=== PATIENT | female | born 1950 | race Caucasian/White ===

== ENCOUNTER 2016-10-09 21:04 | Observation (INO) ==
[2016-10-09 21:48] LABS: Basophils % 0.7 %; Eosinophils # 0.3 K/mcL (0.0-0.6); Hematocrit 28.8 % (35.3-44.9); Hemoglobin 10.4 g/dL (11.5-15.4); Immature Granulocytes % 0.2 % (0-4); Lymphocytes # 1.3 K/mcL (0.6-4.6); Lymphocytes % 23.3 %; Mean Corpuscular HGB Conc 36.1 g/dL (31.6-35.5); Mean Corpuscular Hemoglobin 31.2 pg (28.0-33.3); Mean Corpuscular Volume 86.5 fL (83.0-100.0); Mean Platelet Volume 10.5 fL (9.4-12.4); Monocytes # 0.5 K/mcL (0.0-1.3); Monocytes % 9.7 %; Neutrophils # 3.2 K/mcL (1.6-8.9); Platelet Count 156 K/mcL (140-400); Red Blood Count 3.33 M/mcL (3.82-4.97); Red Cell Distribution Width 11.6 % (11.5-14.5); Segmented Neutrophils % 60.1 %
[2016-10-09 21:54] LABS: Prothrombin Time 11.1 Seconds (9.4-12.1)
[2016-10-09 21:56] LABS: Activated Partial Thrombo Time 25.5 Seconds (26.0-36.0)
[2016-10-09 22:00] LABS: Calcium 8.6 mg/dL (8.6-10.8); Potassium 4.5 mEq/L (3.5-4.5)
--- NOTE | 2016-10-09 22:13 | Emergency Department Note ---
Disposition Clinical Impression: Stable angina Disposition: Admitted As Inpatient Referrals: Unassigned,Provider [Primary Care Provider] - Forms: ED Satisfaction Letter Chest Pain HPI - General Chief Complaint: ED Chest Pain Stated Complaint: chest pain Source: patient, EMS Limitations: no limitations Vital Signs Reviewed: Yes Nursing Notes Reviewed: Yes - History of Present Illness Pt complaint: chest pain Onset (ago): hour(s) Duration: constant, now resolved Onset: during exertion Pain Location: substernal Severity scale (1-10): 1 Quality: heaviness Pain Radiation: none Improves with: nitroglycerin Worsens with: exertion Associated symptoms: Denies: nausea, vomiting Treatments prior to arrival chest pain: aspirin, nitroglycerin, oxygen - Related Data Allergies Allergy/AdvReac Type Severity Reaction Status Date / Time acetaminophen Allergy Hives Verified 12/24/15 09:40 [From Darvocet-N] propoxyphene Allergy Hives Verified 12/24/15 09:40 [From Darvocet-N] All systems ED: reviewed and negative except as stated. Constitutional: Denies: fever, chills ENT ED: Denies: ear pain Cardiovascular: Denies: palpitations, orthopnea Chest Pain PMH - Past Medical History Medical history: Reports: cancer, CVA, diabetes, hypertension, TIA Surgical history: Reports: hysterectomy, orthopedic, other Psychiatric history: Reports: depression [employer] history: Reports: other - Social History Smoking Status: Never smoker Alcohol use: Reports: none Drug use: Reports: none Physical Exam - General Limitations: no limitations General appearance: alert, in no apparent distress - Head Head exam: atraumatic, normocephalic, normal inspection - Eye Eye exam: Present: normal appearance, PERRL, EOMI - Expanded Eye Exam Pupils: Left: reactive - ENT ENT exam: normal exam, normal oropharynx, mucous membranes moist - Expanded ENT Exam External ear exam: Present: normal external inspection Mouth exam: Present: normal external inspection Teeth exam: Present: normal inspection Throat exam: Present: normal inspection - Neck Neck exam: Present: normal inspection, full ROM, trachea midline - Chest Chest inspection: Present: normal inspection, symmetric chest wall rise - Respiratory Respiratory exam: Present: normal lung sounds bilaterally - Cardiovascular Cardiovascular exam: Present: regular rate, normal rhythm, normal heart sounds - Abdominal Exam Abdominal exam: Present: soft, Non-Tender. Absent: tenderness, distention, guarding, rebound, rigidity - Extremities Exam Extremities exam: Present: normal inspection, full ROM. Absent: tenderness, pedal edema - Expanded Upper Extremity Exam Shoulder exam: Present: normal inspection, full ROM Arm exam: Present: normal inspection, full ROM Elbow exam: Present: normal inspection, full ROM Forearm/Wrist exam: Present: normal inspection, full ROM Hand exam: Present: normal inspection, full ROM Vascular exam: Normal: capillary refill, radial pulse - Expanded Lower Extremity Exam Hip/Pelvis exam: Present: normal inspection, full ROM Upper leg exam: Present: normal inspection, full ROM Knee exam: Present: normal inspection, full ROM Lower leg exam: Present: normal inspection, full ROM Ankle exam: Present: normal inspection, full ROM Foot/toe exam: Present: normal inspection, full ROM Neurovascular/Tendon exam: Absent: motor deficit, sensory deficit, tendon deficit - Back Exam Back exam: Present: normal inspection, full ROM. Absent: tenderness - Neurological Exam Neurological exam: Present: alert, oriented X3 - Expanded Neurological Exam Patient oriented to: Present: person, place, time Coma Scale Eye Opening: Spontaneous Coma Scale Motor Response: Obeys Commands Coma Scale Verbal Response: Oriented Coma Scale Total: 15 - Psychiatric Psychiatric exam: Present: normal affect, normal mood - Skin Skin exam: Present: warm, dry, intact, normal color Course Vital Signs Temperature 98.3 F 10/09/16 21:05 Pulse Rate 84 10/09/16 21:05 Respiratory Rate 16 10/09/16 21:05 Blood Pressure 145/59 10/09/16 21:05 O2 Sat by Pulse Oximetry 98 10/09/16 21:05 Temperature 98.3 F 10/09/16 21:05 Pulse Rate 71 10/09/16 21:55 Respiratory Rate 16 10/09/16 21:55 Blood Pressure 122/57 10/09/16 21:55 O2 Sat by Pulse Oximetry 97 10/09/16 21:55 Oxygen Delivery Oxygen Delivery Nasal Cannula Chest Pain - Differential Diagnosis Likely: stable angina, unstable angina pectoris, atypical chest pain, st elevation myocardial infraction, chest pain - Medical Records Medical records reviewed: Yes I reviewed the patient's medical records. - Lab Data Lab results reviewed: Yes I reviewed the patient's lab results. Result diagrams: 10/09/16 21:40 10/09/16 21:40 Lab Results 10/09/16 10/09/16 10/09/16 Range/Units 21:40 21:40 21:40 WBC 5.4 (4.3-11.1) K/mcL RBC 3.33 L (3.82-4.97) M/mcL Hgb 10.4 L (11.5-15.4) g/dL Hct 28.8 L (35.3-44.9) % MCV 86.5 (83.0-100.0) fL MCH 31.2 (28.0-33.3) pg MCHC 36.1 H (31.6-35.5) g/dL RDW 11.6 (11.5-14.5) % Plt Count 156 (140-400) K/mcL MPV 10.5 (9.4-12.4) fL Immature Gran % 0.2 (0-4) % Seg Neutrophils % 60.1 % Lymphocytes % 23.3 % Monocytes % 9.7 % Eosinophils % 6.0 % Basophils % 0.7 % Neutrophils # 3.2 (1.6-8.9) K/mcL Lymphocytes # 1.3 (0.6-4.6) K/mcL Monocytes # 0.5 (0.0-1.3) K/mcL Eosinophils # 0.3 (0.0-0.6) K/mcL Basophils # 0.0 (0.0-0.2) K/mcL PT 11.1 (9.4-12.1) Seconds INR 1.0 APTT 25.5 L (26.0-36.0) Seconds Sodium 133 L (136-145) mEq/L Potassium 4.5 (3.5-4.5) mEq/L Chloride 99 (98-109) mEq/L Carbon Dioxide 25 (19-29) mEq/L BUN 26 H (7-20) mg/dL Creatinine 1.43 H (0.57-1.11) mg/dL Est GFR ( Amer) 44 L (> 60) Est GFR (Non-Af Amer) 37 L (> 60) BUN/Creatinine Ratio 18 (6-26) Glucose 380 H (70-99) mg/dL Calculated Osmolality 296 (280-300) Calcium 8.6 (8.6-10.8) mg/dL Troponin I (0-0.03) ng/mL 10/09/16 Range/Units 21:40 WBC (4.3-11.1) K/mcL RBC (3.82-4.97) M/mcL Hgb (11.5-15.4) g/dL Hct (35.3-44.9) % MCV (83.0-100.0) fL MCH (28.0-33.3) pg MCHC (31.6-35.5) g/dL RDW (11.5-14.5) % Plt Count (140-400) K/mcL MPV (9.4-12.4) fL Immature Gran % (0-4) % Seg Neutrophils % % Lymphocytes % % Monocytes % % Eosinophils % % Basophils % % Neutrophils # (1.6-8.9) K/mcL Lymphocytes # (0.6-4.6) K/mcL Monocytes # (0.0-1.3) K/mcL Eosinophils # (0.0-0.6) K/mcL Basophils # (0.0-0.2) K/mcL PT (9.4-12.1) Seconds INR APTT (26.0-36.0) Seconds Sodium (136-145) mEq/L Potassium (3.5-4.5) mEq/L Chloride (98-109) mEq/L Carbon Dioxide (19-29) mEq/L BUN (7-20) mg/dL Creatinine (0.57-1.11) mg/dL Est GFR ( Amer) (> 60) Est GFR (Non-Af Amer) (> 60) BUN/Creatinine Ratio (6-26) Glucose (70-99) mg/dL Calculated Osmolality (280-300) Calcium (8.6-10.8) mg/dL Troponin I 0.00 (0-0.03) ng/mL - Radiology Data Radiology results reviewed: Yes I reviewed the patient's radiology results. - EKG Data EKG shows normal: sinus rhythm Rate: normal Rhythm: NSR Interpretation: no acute changes
[2016-10-10] MEDS ORDERED: Ondansetron 4 MG/2 ML VIAL IVP PRN (02:41)
[2016-10-10] MEDS ORDERED: Naloxone 0.4 MG/ML INJ IVP PRN (02:41)
--- NOTE | 2016-10-10 02:44 | Internal Med History&Physical ---
Date of Encounter: 10/10/16 Time of Encounter: 01:45 Assessment and Plan (1) Chest pain Current visit: Yes Status: Acute Patient presents with chest pain with history of CAD and placement of 2 stents about 6-7 years ago with no continued cardiology follow-up. First set of troponin negative. Continue telemetry monitoring and cycle troponins. Nuclear stress test in a.m. Continue aspirin, statin, beta naseem. Check lipid profile. Patient may require outpatient cardiology follow-up. Qualifiers: Chest pain type: precordial pain Qualified Code(s): R07.2 - Precordial pain (2) CAD (coronary artery disease) Current visit: Yes Status: Chronic Qualifiers: Coronary Disease-Associated Artery/Lesion type: [place] artery [place] vs. transplanted heart: [place] heart Associated angina: without angina Qualified Code(s): I25.10 - Atherosclerotic heart disease of [place] coronary artery without angina pectoris (3) Essential hypertension Current visit: Yes Status: Chronic Blood pressure noted to be well controlled. Resume home medications. (4) Diabetes mellitus Current visit: Yes Status: Chronic Accu-Chek blood glucose monitoring with sliding scale insulin as needed. Check hemoglobin A1c. Diabetic diet. Qualifiers: Diabetes mellitus type: type 2 Diabetes mellitus complication status: with kidney complications Diabetes mellitus complication detail: with chronic kidney disease Diabetes mellitus o[place] insulin use: without intermediate use Chronic kidney disease stage: stage 3 (moderate) Qualified Code(s): E11.22 - Type 2 diabetes mellitus with diabetic chronic kidney disease; N18.3 - Chronic kidney disease, stage 3 (moderate) (5) Chronic kidney disease Current visit: Yes Status: Chronic Patient likely has diabetic nephropathy. Chronic kidney disease stage III, follows with nephrology as outpatient. Serum creatinine currently noted to be at her baseline. Qualifiers: Chronic kidney disease stage: stage 3 (moderate) Qualified Code(s): N18.3 - Chronic kidney disease, stage 3 (moderate) Internal Medicine - H&P: HPI Chief complaint: chest pain Admitted From: Emergency Dept Plans for Post Hospital Care: Home History of present illness: Ms. Coleman is a 65 year old female with history of CAD status post stent several years ago, presents with complaints of sudden onset of retrosternal chest pain. Patient reports having the sudden onset of sharp pressure-like retrosternal chest pain earlier this evening as she was getting up to get herself some coffee. She reports that the pain lasted for about an hour, it was moderate to severe, occasionally radiating to neck and left shoulder. EMS was called and patient received 3 doses of sublingual nitroglycerin with complete resolution of chest pain by the time she presented to the emergency room. Her chest pain was associated with mild shortness of breath and nausea, no vomiting, cough, syncope. No prior similar episodes. Past Med Surg Social Fam HX - Past Medical History Medical history: cancer, CVA, diabetes, hypertension, renal disease, TIA Psychiatric history: depression - Past Surgical History Surgical History: hysterectomy, orthopedic, other (Spinal fusion surgery) - Social History Smoking Status: Never smoker Smokeless Tobacco Status: No Alcohol use: none Drug use: none Occupational status: unemployed Current living situation: Home - Independent Activity Level: Independent ambulation Recent Out of Country Travel Within the Last 8 Weeks: No - Family History Mother Hx Family Cardiac Disorders: Yes (CVA, PR, HTN, HLD) Hx Family Respiratory Disorders: No Hx Family Cancer: Yes (Breast) Hx Family GI Disorders: No Hx Family Genitourinary Disorders: No Hx Family Endocrine Disorder: No Hx Family Musculoskeletal Disorders: No Hx Family Neuromuscular Disorders: No Hx Family Neurologic Disorders: No Hx Family HEENT Disorders: No Hx Family Autoimmune Disorders: No Hx Family Reproductive Disorders: No Hx Family Psychosocial Disorders: No Hx Family Medical Disorders: No Brother Hx Family Cardiac Disorders: Yes (PR, CVA) Hx Family Respiratory Disorders: No Hx Family Cancer: No Hx Family GI Disorders: No Hx Family Genitourinary Disorders: No Hx Family Endocrine Disorder: Yes (DM) Hx Family Musculoskeletal Disorders: No Hx Family Neuromuscular Disorders: No Hx Family Neurologic Disorders: No Hx Family HEENT Disorders: No Hx Family Autoimmune Disorders: No Hx Family Reproductive Disorders: No Hx Family Psychosocial Disorders: No Hx Family Medical Disorders: No Internal Medicine - H&P: Meds Carvedilol 3.125 mg PO BID 10/09/16 [History] Citalopram Hydrobromide [Citalopram HBr] 40 mg PO DAILY 10/09/16 [History] Lisinopril [Zestril] 10 mg PO DAILY 10/09/16 [History] Nitrofurantoin (BID) [Macrobid] 100 mg PO BID 10/09/16 [History] Pantoprazole Sodium [Protonix] 40 mg PO DAILY 10/09/16 [History] Simvastatin [Zocor] 40 mg PO HS 10/09/16 [History] Allergies acetaminophen [From Darvocet-N] Allergy (Verified 12/24/15 09:40) Hives propoxyphene [From Darvocet-N] Allergy (Verified 12/24/15 09:40) Hives All Systems PM: A 10-system review of systems was performed and is negative for pertinent findings except as documented above in the HPI. - Constitutional Constitutional: no chills, no fever(s), no night sweats - EENT Eyes: no change in vision, no discharge, no pain, no photophobia Ears: no ear discharge, no ear pain, no tinnitus Nose, mouth and throat: no dysphagia, no nasal discharge, no neck pain, no sore throat - Cardiovascular Cardiovascular ROS IM: chest pain, dyspnea - Respiratory Respiratory: no cough, no dyspnea, no wheezing, no excessive phlegm production - Gastrointestinal Gastrointestinal: nausea, no abdominal pain, no diarrhea, no hematemesis, no hematochezia, no melena, no vomiting - Genitourinary Genitourinary: no change in urinary stream, no dysuria, no flank pain, no hematuria - Musculoskeletal Musculoskeletal ROS IM: no numbness, no tingling - Integumentary Integumentary IM: no rash, no unusual bruising - Neurological Neurological ROS: no confusion, no convulsions, no focal weakness, no numbness, no tingling, no tremor(s) - Hematologic/Lymphatic Hematologic/Lymphatic: no easy bruising - Constitutional Vitals: Temp Pulse Resp BP Pulse Ox 98 F 77 16 117/70 95 10/09/16 23:46 10/09/16 23:46 10/09/16 23:46 10/09/16 23:46 10/09/16 23:46 General appearance: Present: A&O X 3, answers questions appropriately - Respiratory Respiratory exam: Present: CTAB. Absent: accessory muscle use, rales, rhonchi, wheezes - Cardiovascular Cardiovascular exam: Present: RRR, +S1, +S2. Absent: diastolic murmur, gallop, rubs, systolic murmur - GI/Abdominal GI/Abdominal exam: Present: normal bowel sounds, soft, no peritoneal signs. Absent: distended, tenderness - Extremities Exam Extremities exam: Present: full ROM, warm, radial pulses palpable and symetrical. Absent: calf tenderness, cyanotic, pedal edema - Neurological Exam Neurological exam: Present: CN II-XII intact, oriented X3, no focal deficits. Absent: pronater drift, facial droop, speech deficit - Skin Skin exam: Present: dry, intact Internal Med - H&P Results - Labs CBC & Chem 7: 10/09/16 21:40 10/09/16 21:40 - EKG Data EKG shows normal: sinus rhythm Rate: normal
[2016-10-10 03:56] LABS: Basophils % 0.6 %; Eosinophils # 0.3 K/mcL (0.0-0.6); Eosinophils % 5.6 %; Hemoglobin 10.2 g/dL (11.5-15.4); Immature Granulocytes % 0.2 % (0-4); Lymphocytes # 1.3 K/mcL (0.6-4.6); Lymphocytes % 27.9 %; Mean Corpuscular HGB Conc 35.2 g/dL (31.6-35.5); Mean Corpuscular Hemoglobin 30.4 pg (28.0-33.3); Mean Corpuscular Volume 86.3 fL (83.0-100.0); Mean Platelet Volume 11.2 fL (9.4-12.4); Monocytes # 0.4 K/mcL (0.0-1.3); Monocytes % 9.2 %; Neutrophils # 2.7 K/mcL (1.6-8.9); Platelet Count 148 K/mcL (140-400); Red Blood Count 3.36 M/mcL (3.82-4.97); Red Cell Distribution Width 11.6 % (11.5-14.5); Segmented Neutrophils % 56.5 %
[2016-10-10 04:10] LABS: Chol/HDL Ratio 2.7 (0-4.9)
[2016-10-10] MEDS ORDERED: Regadenoson 0.4 MG/5 ML SYRINGE IVP ONE (06:49)
[2016-10-10] MEDS ORDERED: *HR* Dextrose 50 % in Water (Syg) 50 ML SYRINGE IVP PRN (09:54)
[2016-10-10] MEDS ORDERED: Dextrose Gel 15 GM PO PRN ×2 (09:54)
[2016-10-10] MEDS ORDERED: D5% in Water 1,000 ML IVC PRN (09:54)
[2016-10-10 11:24] VITALS: BP 109/65
[2016-10-10] MEDS ORDERED: Insulin LISPRO 300 UNITS/3 ML VIAL SQ SCH ×2 (11:30→21:00)
--- NOTE | 2016-10-10 11:33 | Nuclear Medicine Stress Report ---
Regadenoson Nuclear Stress Name: Roxy Coleman Date of Study: 10/10/2016 Date: 1950 Ht: 68.0 in Medical Record#: [id number] Age: 65 Wt: 188.0 lb Gender: Female Order #: [id number] Location: [facility] Room: [facility] Supervising Provider: Bernardino Rogel CNP Reading Physician: Jed Siddiqui MD, [facility] Ordering Physician: Tania Joy CNP Stress Technologist: Alistair Caal RRT, CCT Weather Forcaster: Hal Chang Indications: Chest Pain Impression: Perfusion imaging was negative for ischemia or infarct. Pharmacologic ECG was non diagnostic for ischemia. Patient had no chest pain with stress. Normal hemodynamic response. No arrhythmias noted with stress. Gated EF = >70%. There is no evidence of TID. History: Hypertension Diabetes Hypercholesteremia Prior PCI Stress Test Summary: Stress Test Type: Pharmacologic Regadenoson 0.4mg/5ml given IV Baseline Information: Initial Heart Rate: 70 Blood Pressure: 140/72 Stress Information: Stress Time: 4 min 00 sec Test Terminated Due to (primary): Completed Protocol Maximum Blood Pressure: 150/76 Maximum Heart Rate: 100 Percent Maximum Heart Rate Achieved: 66 Double Product: 15,000 METS Reached: 1 Symptoms: tingly, Shortness of breath Nuclear Summary: SPECT myocardial perfusion imaging using Tc99m Sestamibi given intravenously was performed at rest and following cardiac stress testing. The resting images were obtained following initial dose of 9.6 mCi. Following stress an additional dose of 33.8 mCi was given at peak exercise or 30 seconds post regadenoson infusion. Medication Given: Time Medication Dose Units Route Findings: Stress Note * Resting ECG demonstrated normal sinus rhythm. * No baseline arrhythmias were noted. * Pharmacologic stress ECG is non diagnostic for ischemia due to failure to reach target heartrate. * No arrhythmias were noted during stress. * Patient had no chest pain during stress. Hemodynamic responses * Normal hemodynamic responses to pharmacologic stress. Study Quality * Study quality is average. Gated EF > 70% * Gated EF > 70%. Left Ventricle * The left ventricle is not dilated. NORMALS * Normal wall motion. * Normal segmental perfusion in stress. * Normal Segmental Perfusion in rest. TID * No evidence of transient ischemic dilatation. Updated by Jed Siddiqui MD, FACC on 10/10/2016 11:21:32 AM electronically signed on 10/10/2016 11:26:25 AM with status of Final
[2016-10-10] MEDS ORDERED: Insulin DETEMIR 100 UNIT/ML X5UNITS SQ SCH (12:30)
--- NOTE | 2016-10-10 13:17 | Discharge Summary ---
Date of Encounter: 10/10/16 Time of Encounter: 12:30 - Discharge Diagnosis (1) Chest pain Priority: Primary Status: Resolved Comments: Patient denied chest pain or shortness of breath on day of discharge. Chest x- ray negative. Troponins negative. Stress test negative. ACS ruled out. Qualifiers: Chest pain type: precordial pain Qualified Code(s): R07.2 - Precordial pain (2) Esophageal spasm Priority: Primary Status: Suspected (3) UTI (urinary tract infection) Priority: Primary Status: Resolved Comments: Patient stating she was diagnosed with a urinary tract infection outpatient per her video recorder mechanic Dr. Velazquez last at which time she was started on Macrobid. Urine culture negative. Follow-up outpatient (4) CAD (coronary artery disease) Priority: Secondary Status: Chronic Qualifiers: Coronary Disease-Associated Artery/Lesion type: [place] artery [place] vs. transplanted heart: [place] heart Associated angina: without angina Qualified Code(s): I25.10 - Atherosclerotic heart disease of [place] coronary artery without angina pectoris (5) Essential hypertension Priority: Secondary Status: Chronic Comments: Controlled with her home dosing of carvedilol, lisinopril. Follow palpation. (6) Diabetes mellitus Priority: Secondary Status: Chronic Comments: Moderately controlled with a recent A1c of 8.9%. Patient was hyperglycemic during this admission. She states that when she has infections that her glucoses are elevated. Treated with long-acting insulin prior to discharge. Follow-up outpatient. Qualifiers: Diabetes mellitus type: type 2 Diabetes mellitus complication status: with kidney complications Diabetes mellitus complication detail: with chronic kidney disease Diabetes mellitus terminal worker insulin use: without alf use Chronic kidney disease stage: stage 3 (moderate) Qualified Code(s): E11.22 - Type 2 diabetes mellitus with diabetic chronic kidney disease; N18.3 - Chronic kidney disease, stage 3 (moderate) (7) Chronic kidney disease Priority: Secondary Status: Chronic Comments: Stable and consistent with her baseline. She has a video recorder mechanic that is following her outpatient, Dr. Velazquez. Qualifiers: Chronic kidney disease stage: stage 3 (moderate) Qualified Code(s): N18.3 - Chronic kidney disease, stage 3 (moderate) - Discharge Medications Home Medications: Carvedilol 3.125 mg PO BID 10/09/16 [History] Citalopram Hydrobromide [Citalopram HBr] 40 mg PO DAILY 10/09/16 [History] Lisinopril [Zestril] 10 mg PO DAILY 10/09/16 [History] Nitrofurantoin (BID) [Macrobid] 100 mg PO BID 10/09/16 [History] Pantoprazole Sodium [Protonix] 40 mg PO DAILY 10/09/16 [History] Simvastatin [Zocor] 40 mg PO HS 10/09/16 [History] Insulin Glargine,Hum.rec.anlog [Lantus Solostar] 29 unit SQ QAM 10/10/16 [ History] Insulin LISPRO [HumaLOG] 0 unit SQ TIDWM 10/10/16 [History] Allergies/Adverse Reactions: Allergies acetaminophen [From Darvocet-N] Allergy (Verified 12/24/15 09:40) Hives propoxyphene [From Darvocet-N] Allergy (Verified 12/24/15 09:40) Hives Procedures/tests Complete & Pending: Procedures Performed prior 72 hours Category Date Time Status NM yue perf SPECT multi [NM] Routine Exams 10/10/16 02:43 Taken SP pharm nuclear stress Routine Y 10/10/16 02:43 Completed Date of admission: 10/09/16 22:20 Primary care physician: Dimitry Maldonado MD Discharging clinician: Tania Joy Anticipated date of discharge: 10/10/16 - Patient Status Disposition: Home, Self-Care Condition: Good Functional capacity at discharge: independent ambulation Overall status at discharge: patient is back to baseline - Discharge Instructions Follow Up With: Dimitry Maldonado MD [Primary Care Provider] - Kitty Abreu MD [Partnered Physician] - Additional Instructions: Follow-up with primary care provider within one to 2 weeks and video recorder mechanic as needed - Diet and Activity Activity: increase activity as tolerated Diet: diabetic diet, low fat, low cholesterol, low salt diet Hospital course: Ms. Coleman is a 65 year old female with past medical history of CAD status post stents, prior CVA, diabetes, hypertension, chronic kidney disease, prior TIA. Patient presented to the emergency department chief complaint sudden onset of retrosternal located chest pain. Patient stating she had a sudden onset of sharp, pressure-like, retrosternally located chest pain that occurred while she was getting up to get herself some coffee and she reports this pain lasted for approximately 1 hour, was moderate to severe, and occasionally radiated to her neck and left shoulder. EMS was dispatched and the patient received 3 doses of sublingual nitroglycerin with complete resolution of her chest pain. She was chest pain-free upon presentation to the emergency department. Workup in the emergency department unremarkable. Patient was admitted to the hospitalist service for further evaluation and management. Chest x-ray negative. Troponins were negative. Nuclear stress test negative for ischemia or infarct and revealed an ejection fraction greater than 70%. Acute coronary syndrome ruled out. Patient denied chest pain or shortness of breath throughout this admission. Patient was hyperglycemic during this admission which she states is common for her when she is stressed or has an infection. She was diagnosed with a urinary tract infection by her video recorder mechanic Dr. Velazquez last and started on Macrobid. Urine culture negative. Patient denies dysuria. Renal function remained stable throughout this admission. She was able tolerate a regular diet prior to discharge. She is on protonix to home. As acute coronary syndrome was ruled out and her pain was relieved with nitroglycerin, suspect esophageal spasms. She was discharged home in stable condition with close outpatient follow-up recommended. ITS Impressions Chest X-Ray 10/09/16 21:26 IMPRESSION: No acute cardiopulmonary disease D/ / Harry Bender MD / Harry Bender MD Interpreting Provider: Harry Bender MD Regadenosen nuclear stress test impression: Perfusion imaging was negative for ischemia or infarct. Pharmacologic ECG was nondiagnostic for ischemia. Patient had no chest pain with stress. Normal hemodynamic response. No arrhythmias noted with stress. Gated ejection fraction is greater than 70%. There is no evidence of TID. - Time Spent with Patient Total time spent providing and/or coordinating discharge services: - Constitutional Vitals: Temp Pulse Resp BP Pulse Ox 97.4 F L 83 16 109/65 95 10/10/16 11:23 10/10/16 11:23 10/10/16 11:23 10/10/16 11:23 10/10/16 11:23 General appearance: Present: A&O X 3, pleasant, no acute distress, answers questions appropriately - Head Head exam: Present: atraumatic, normocephalic - Eye Eye exam: Present: PERRL, conjuntiva pink, sclera anicteric Pupils: Present: PERRL - Neck Neck exam general surgery: Present: supple, trachea midline. Absent: lymphadenopathy - Respiratory Respiratory exam: Present: CTAB. Absent: accessory muscle use, rales, respiratory distress, rhonchi, wheezes - Cardiovascular Cardiovascular exam: Present: RRR, +S1, +S2. Absent: diastolic murmur, gallop, rubs, systolic murmur - GI/Abdominal GI/Abdominal exam: Present: normal bowel sounds, soft, no peritoneal signs. Absent: distended, tenderness - Extremities Exam Extremities exam: Present: warm, radial pulses palpable and symetrical. Absent : calf tenderness, cyanotic, pedal edema - Neurological Exam Neurological exam: Present: alert, CN II-XII intact, normal gait, oriented X3, no focal deficits, strengths equal and symetr throughout. Absent: pronater drift, facial droop, speech deficit - Skin Skin exam: Present: dry, intact, normal color, warm
--- NOTE | 2016-10-10 20:43 | Electrocardiograph Report ---
[place] [id number] Test Date: 2016-10-09 Pat Name: Roxy Coleman Department: 102 Room: 3B38 Gender: F Transcribing Machine Operator: Santy : 1950 Requested By: Pedro Dimas Order Number: [id number] Reading MD: Jed Siddiqui MD Measurements Intervals [place] Rate: 78 P: 39 DC: 112 QRS: 14 QRSD: 77 T: 53 QT: 377 QTc: 410 Interpretive Statements SINUS RHYTHM WITH SHORT DC INTERVAL LOW QRS VOLTAGE IN PRECORDIAL LEADS Electronically Signed On 10-10-2016 20:42:03 EDT by eJd Siddiqui MD
== END 2016-10-10 14:39 | disposition home or self-care (01) ==
LOC: 3BNU 21:04 → EMEROO 21:04 → 3BNU 23:27
PROVIDERS: ADMIT Internal Medicine; ATTEND Nurse Practitioner Family

== ENCOUNTER 2018-09-21 14:06 | Observation (INO) ==
[2018-09-21] MEDS ORDERED: Ondansetron 4 MG/2 ML VIAL IVP ONE (15:35)
[2018-09-21] MEDS ORDERED: 0.9 % Sodium Chloride 1,000 ML IVC ONE ×2 (15:35→16:34)
[2018-09-21 15:57] LABS: Basophils # 0.1 K/mcL (0.0-0.2); Basophils % 0.8 %; Eosinophils # 0.1 K/mcL (0.0-0.6); Eosinophils % 1.4 %; Hematocrit 33.1 % (35.3-44.9); Hemoglobin 11.6 g/dL (11.5-15.4); Immature Granulocytes % 0.5 % (0-4); Lymphocytes # 1.5 K/mcL (0.6-4.6); Lymphocytes % 23.1 %; Mean Corpuscular Hemoglobin 31.6 pg (28.0-33.3); Mean Corpuscular Volume 90.2 fL (83.0-100.0); Mean Platelet Volume 11.7 fL (9.4-12.4); Monocytes # 0.4 K/mcL (0.0-1.3); Monocytes % 6.2 %; Neutrophils # 4.4 K/mcL (1.6-8.9); Platelet Count 183 K/mcL (140-400); Red Blood Count 3.67 M/mcL (3.82-4.97); Red Cell Distribution Width 12.1 % (11.5-14.5)
[2018-09-21 16:19] LABS: Albumin 4.3 g/dL (3.5-5.7); Albumin/Globulin Ratio 1.7 (1.1-2.2); Bilirubin,Total 0.7 mg/dL (0.3-1.0); Calcium 8.9 mg/dL (8.6-10.3); Globulin 2.6 g/dL (2.4-3.5); Potassium 5.4 mEq/L (3.5-5.1); Total Protein 6.9 g/dL (6.4-8.9)
[2018-09-21 16:23] LABS: Troponin I 0.03 ng/mL (< 0.04)
[2018-09-21] MEDS ORDERED: Insulin Human Regular 10 UNIT in 0.9 % Sodium Chloride 10 ML IV ONE (17:32)
--- NOTE | 2018-09-21 17:35 | Emergency Department Note ---
Disposition Clinical Impression: Hyperglycemia, Acute kidney injury, Ketosis Disposition: Admitted As Inpatient Condition: Good Referrals: Dimitry Maldonado MD [Primary Care Provider] - Time of Disposition: 17:36 General Adult HPI - General Chief complaint: ED Nausea/Vomiting/Diarrhea Stated complaint: high blood sugar Time Seen by Provider: 09/21/18 14:45 Source: patient Limitations: no limitations - History of Present Illness HPI Narrative: Patient 67-year-old female who presents the emergency department with chief complaint of hyperglycemia. Patient states that she is an insulin-dependent type 2 diabetic the last several weeks and having difficulty controlling her blood sugars. The patient reports that her blood sugars been over 500 today and she is feeling weak and rundown. The patient also reports that she has had increased thirst and had some mild discomfort in her chest at times and also reports. Patient denies any diarrhea denies indiscretion and states compliant with her medications. Pain Scale: 0 - Related Data Home Medications Medication Instructions Recorded Confirmed Carvedilol 3.125 mg PO BID 10/09/16 12/27/17 Citalopram Hydrobromide 40 mg PO DAILY 10/09/16 12/27/17 [Citalopram HBr] Lisinopril [Zestril] 10 mg PO DAILY 10/09/16 12/27/17 Pantoprazole Sodium [Protonix] 40 mg PO DAILY 10/09/16 12/27/17 Simvastatin [Zocor] 40 mg PO HS 10/09/16 12/27/17 Insulin Glargine,Hum.rec.anlog 35 unit SQ QAM 10/10/16 12/27/17 [Lantus Solostar] Insulin LISPRO [HumaLOG] 0 unit SQ TIDWM PRN 10/10/16 12/27/17 Aspirin 81 mg PO DAILY 12/31/16 12/27/17 Mv-Mn/FA/Vit K/Lycop/Lut/Coq10 1 tab PO DAILY 12/31/16 12/27/17 [Daily Multivitamin Capsule] Basaglar Kwikpen U-100 12/27/17 Ferrex 150 12/27/17 MiraLAX 12/27/17 Vitamin D3 12/27/17 Allergies Allergy/AdvReac Type Severity Reaction Status Date / Time acetaminophen Allergy Hives Verified 07/06/18 17:28 [From Darvocet-N] propoxyphene Allergy Hives Verified 07/06/18 17:28 [From Darvocet-N] All systems ED: reviewed and negative except as stated. Past Medical History - Past Medical History Attestation: Yes The following information was validated with the patient. 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 Head: Normocephalic/atraumatic Eyes:PERRLA, EOMI, no conjunctivitis Nares: Without d/c. Ears: No erythema or d/c noted. Oralpharnyx: P&MMM noted, Neck: Supple, no JVD or CRIMINAL JUSTICE SOCIAL WORKER noted. Cardovascular: regular rate and rhythm without murmur, brisk capillary refill, no peripheral edema. Lungs: Clear to ascultation bilaterally, non-labored Abd: Soft nontender, Non Distended, no guarding, no rebound. : Defered Extremities: moves all extremities equally Neuro: AOx3, no obvious gross neuro deficit Psych: Normal Affect Derm: No rash noted - General Limitations: no limitations General appearance: alert, in no apparent distress Course Course Narrative: The patient's been hydrated in the emergency department still maintains elevated blood sugars. Given the findings on her laboratory studies. Patient will be best admitted from admission hospital. Patient given IV insulin in the emergency Department ABG will be obtained case was discussed with the hospitalist and except as Vital Signs Temperature 98.1 F 09/21/18 14:12 Pulse Rate 92 09/21/18 14:12 Respiratory Rate 09/21/18 14:12 Blood Pressure 155/75 09/21/18 14:12 O2 Sat by Pulse Oximetry 100 09/21/18 14:12 Temperature 98.1 F 09/21/18 14:12 Pulse Rate 92 09/21/18 14:12 Respiratory Rate 26 09/21/18 14:12 Blood Pressure 155/75 09/21/18 14:12 O2 Sat by Pulse Oximetry 100 09/21/18 14:12 Oxygen Delivery Oxygen Delivery Room Air Medical Decision Making - Lab Data Result diagrams: 09/21/18 14:25 09/21/18 14:25 Lab Results 09/21/18 09/21/18 09/21/18 Range/Units 14:25 14:25 14:25 WBC 6.4 (4.3-11.1) K/mcL RBC 3.67 L (3.82-4.97) M/mcL Hgb 11.6 (11.5-15.4) g/dL Hct 33.1 L (35.3-44.9) % MCV 90.2 (83.0-100.0) fL MCH 31.6 (28.0-33.3) pg MCHC 35.0 (31.6-35.5) g/dL RDW 12.1 (11.5-14.5) % Plt Count 183 (140-400) K/mcL MPV 11.7 (9.4-12.4) fL Immature Gran % 0.5 (0-4) % Seg Neutrophils % 68.0 % Lymphocytes % 23.1 % Monocytes % 6.2 % Eosinophils % 1.4 % Basophils % 0.8 % Neutrophils # 4.4 (1.6-8.9) K/mcL Lymphocytes # 1.5 (0.6-4.6) K/mcL Monocytes # 0.4 (0.0-1.3) K/mcL Eosinophils # 0.1 (0.0-0.6) K/mcL Basophils # 0.1 (0.0-0.2) K/mcL Sodium 129 L (136-145) mEq/L Potassium 5.4 H (3.5-5.1) mEq/L Chloride 95 L (98-107) mEq/L Carbon Dioxide 26 (23-29) mEq/L BUN 38 H (8-23) mg/dL Creatinine 1.84 H (0.60-1.20) mg/dL Est GFR ( Amer) 33 L (> 60) Est GFR (Non-Af Amer) 27 L (> 60) BUN/Creatinine Ratio 21 (6-26) Glucose 584 H* (70-105) mg/dL Serum Osmolality (280-300) mOsm/kg Calculated Osmolality 304 H (280-300) Calcium 8.9 (8.6-10.3) mg/dL Total Bilirubin 0.7 (0.3-1.0) mg/dL AST 21 (13-39) Units/L ALT 5 L (7-52) Units/L Alkaline Phosphatase 87 (34-104) Units/L Troponin I 0.03 (< 0.04) ng/mL Serum Total Protein 6.9 (6.4-8.9) g/dL Albumin 4.3 (3.5-5.7) g/dL Globulin 2.6 (2.4-3.5) g/dL Albumin/Globulin Ratio 1.7 (1.1-2.2) Beta-Hydroxybutyric Acd 1.03 H (0.02-0.27) mmol/L 09/21/18 Range/Units 15:36 WBC (4.3-11.1) K/mcL RBC (3.82-4.97) M/mcL Hgb (11.5-15.4) g/dL Hct (35.3-44.9) % MCV (83.0-100.0) fL MCH (28.0-33.3) pg MCHC (31.6-35.5) g/dL RDW (11.5-14.5) % Plt Count (140-400) K/mcL MPV (9.4-12.4) fL Immature Gran % (0-4) % Seg Neutrophils % % Lymphocytes % % Monocytes % % Eosinophils % % Basophils % % Neutrophils # (1.6-8.9) K/mcL Lymphocytes # (0.6-4.6) K/mcL Monocytes # (0.0-1.3) K/mcL Eosinophils # (0.0-0.6) K/mcL Basophils # (0.0-0.2) K/mcL Sodium (136-145) mEq/L Potassium (3.5-5.1) mEq/L Chloride (98-107) mEq/L Carbon Dioxide (23-29) mEq/L BUN (8-23) mg/dL Creatinine (0.60-1.20) mg/dL Est GFR ( Amer) (> 60) Est GFR (Non-Af Amer) (> 60) BUN/Creatinine Ratio (6-26) Glucose (70-105) mg/dL Serum Osmolality 308 H (280-300) mOsm/kg Calculated Osmolality (280-300) Calcium (8.6-10.3) mg/dL Total Bilirubin (0.3-1.0) mg/dL AST (13-39) Units/L ALT (7-52) Units/L Alkaline Phosphatase (34-104) Units/L Troponin I (< 0.04) ng/mL Serum Total Protein (6.4-8.9) g/dL Albumin (3.5-5.7) g/dL Globulin (2.4-3.5) g/dL Albumin/Globulin Ratio (1.1-2.2) Beta-Hydroxybutyric Acd (0.02-0.27) mmol/L
[2018-09-21] MEDS ORDERED: Naloxone 0.4 MG/ML INJ IVP PRN (17:59)
[2018-09-21] MEDS ORDERED: Ondansetron ODT 4 MG TAB.RAPDIS SL PRN (17:59)
[2018-09-21] MEDS ORDERED: *HR* Dextrose 50 % in Water (Syg) 50 ML SYRINGE IVP PRN (17:59)
[2018-09-21] MEDS ORDERED: Insulin Regular, Human 100 UNIT/ML IV PRN (17:59)
[2018-09-21] MEDS ORDERED: Insulin Human Regular 100 UNIT in 0.9 % Sodium Chloride 100 ML IVC SCH (18:00)
--- NOTE | 2018-09-21 18:03 | Event Note ---
Date of Encounter: 09/21/18 Time of Encounter: 17:35 Patient with history of diabetes [id number], contrary artery disease, hypertension presented to the ER after her primary care provider advised her to come due to with her brittle diabetes. Patient has been struggling with elevated and low blood sugars intermittently over the past couple of weeks. She is to previously see an sheet metal shop supervisor but has not been able to see one for several months. She takes Lantus in the morning and Humalog 3 times a day before meals. She reports that yesterday she had checked her blood sugar before going outside her home and it was noted to be 318. She then took 5 units of Humalog and went to [facility] and she checked her blood sugar again over there and was found to be in the 50s. She also had an episode of hypoglycemia with blood sugar of 30s a few days back and it took a while before her sugars came back up. She was advised to cut back on her Lantus insulin and has been slowly going up on it again as her sugars have remained high. This morning she took 41 units of Levemir and has taken to 36 units of Humalog 3 times but her glucometer Reading high and so she came to the ER. Patient feels thirsty and hungry. She denies any chest pain shortness of breath. No abdominal pain nausea or vomiting. She does have chronic back pain. No fevers or chills. No dysuria. No hematuria. She does report constipation. General: Patient is alert, moderate distress, oriented x 3 Head: atraumatic, normocephalic, ENT: Mucous membranes are dry Eye: normal appearance, PERRL, no scleral icterus, no conjunctival injection Neck: normal inspection, trachea midline, full ROM, no carotid bruits Chest: normal inspection, symmetric chest rise Respiratory: Good respiratory effort. Normal breath sounds. No wheezing or crackles. Cardiovascular: Regular rate and rhythm. s1 and s2 normal No clicks, rubs, gallops, or murmurs. No pedal edema Abdomen: Abdomen is soft, nontender. Bowel sounds are present Musculoskeletal: Spontaneously moving all extremities Skin: Poor skin turgor, warm, dry, intact. Neuro: Alert oriented x 3 normal cranial nerves, no focal deficits Psych: Patient's affect is normal Hyperosmolar hyperglycemic state: With elevated blood sugars. Will place patient on IV fluids and HHS protocol. Monitor blood sugars closely while patient is on IV insulin. High risk for complications. Given that patient reported a history of brittle diabetes, she will need close monitoring of her sugars and adjustment of her insulin regimen. Acute kidney injury on chronic kidney disease stage III: Patient has elevated creatinine above her baseline. Currently 1.84. Baseline appears to be between 1.3 and 1.5. Likely due to dehydration and HHS. We will give IV fluids. Monitor input and output. Monitor renal function. Hyperkalemia: Potassium of 5.4. Most likely due to hyperosmolar hyperglycemic s christ[place]. We will manage accordingly. Coronary artery disease: Resume home medications. DVT prophylaxis with subcutaneous heparin.
--- NOTE | 2018-09-21 18:07 | Internal Med History&Physical ---
<Velma Garces E - Last Filed: 09/21/18 18:25> Date of Encounter: 09/21/18 Time of Encounter: 17:55 Internal Medicine - H&P: HPI Chief complaint: DKA Admitted From: Home Plans for Post Hospital Care: Home History of present illness: Ms. Coleman is a 67 year old female who has history of insulin-dependent diabetes, CAD, HTN Presented to the ER after primary care provider advised her to come due to her diabetes Patient has been struggling with elevated sugars upwards of or 100 at home Noticed that she has had a few very low numbers including 38 the other day which took over an hour for her to increase, and 58 2 days ago which did not increase after a meal. She is to see an continuous dryout operator helper but has not been able to see them for a while and they moved She has been taking 41 units of Levemir in this morning and has taken 336 unit doses of Humalog today. Her glucometer continue to run high this morning so she did come in to get checked out. Patient states that she has been hungry and thirsty, does report a history of constipation and chronic back pain She denies any chest pain shortness of breath abdominal pain, nausea, vomiting Patient currently in DKA with elevated blood sugars. When seen and examined at bedside she was in mild distress. She stated that she just was not quite feelin g well. She was very concerned about her blood sugars. Patient states that she has a family history of diabetes and high blood pressure on both sides of her family Patient denies smoking, drinking alcohol, illicit drug use Past Med Surg Social Fam HX - Past Medical History Medical history: diabetes, hypertension, renal disease Additional medical history: unmspecified heart problem Psychiatric history: depression - Past Surgical History Surgical History: cancer surgery, hysterectomy, orthopedic, other Additional surgical history: spinal fusion. melanoma removed. heart stent - Social History Smoking Status: Never smoker Smokeless Tobacco Status: No Alcohol use: none Drug use: none - Family History Mother Hx Family Cardiac Disorders: Yes (CVA, ID, HTN, HLD) Hx Family Respiratory Disorders: No Hx Family Cancer: Yes (Breast) Hx Family GI Disorders: No Hx Family Endocrine Disorder: No Hx Family Neuromuscular Disorders: No Hx Family Neurologic Disorders: No Hx Family HEENT Disorders: No Hx Family Autoimmune Disorders: No Brother Hx Family Cardiac Disorders: Yes (ID, CVA) Hx Family Respiratory Disorders: No Hx Family Cancer: No Hx Family GI Disorders: No Hx Family Endocrine Disorder: Yes (DM) Hx Family Neuromuscular Disorders: No Hx Family Neurologic Disorders: No Hx Family HEENT Disorders: No Hx Family Autoimmune Disorders: No Internal Medicine - H&P: Meds Carvedilol 3.125 mg PO BID 10/09/16 [History] Citalopram Hydrobromide [Citalopram HBr] 40 mg PO DAILY 10/09/16 [History] Lisinopril [Zestril] 10 mg PO DAILY 10/09/16 [History] Pantoprazole Sodium [Protonix] 40 mg PO DAILY 10/09/16 [History] Simvastatin [Zocor] 40 mg PO HS 10/09/16 [History] Insulin Glargine,Hum.rec.anlog [Lantus Solostar] 35 unit SQ QAM 10/10/16 [History] Insulin LISPRO [HumaLOG] 0 unit SQ TIDWM PRN 10/10/16 [History] Aspirin 81 mg PO DAILY 12/31/16 [History] Mv-Mn/FA/Vit K/Lycop/Lut/Coq10 [Daily Multivitamin Capsule] 1 tab PO DAILY 12/31/16 [History] Ferrex 150 1 cap PO DAILY 12/27/17 [History] MiraLAX PO DAILY 12/27/17 [History] Vitamin D3 1 tab PO DAILY 12/27/17 [History] Allergy/AdvReac Type Severity Reaction Status Date / Time acetaminophen Allergy Hives Verified 07/06/18 17:28 [From Darvocet-N] propoxyphene Allergy Hives Verified 07/06/18 17:28 [From Darvocet-N] All Systems PM: A 10-system review of systems was performed and is negative for pertinent findings except as documented above in the HPI. - Constitutional Constitutional: no anorexia, no fatigue, no falls - EENT Eyes: no change in vision - Cardiovascular Cardiovascular ROS IM: no chest pain, no edema, no irregular heart rhythm - Respiratory Respiratory: no cough, no chest congestion - Gastrointestinal Gastrointestinal: constipation, no nausea, no vomiting - Musculoskeletal Musculoskeletal ROS IM: back pain - Integumentary Integumentary IM: no new lesions, no rash - Neurological Neurological ROS: no dizziness, no frequent falls, no weakness - Constitutional Vitals: Temp Pulse Resp BP Pulse Ox 98.1 F 92 26 155/75 100 09/21/18 14:12 09/21/18 14:12 09/21/18 14:12 09/21/18 14:12 09/21/18 14:12 Exam: General: AAO 3, moderate distress, and is questions appropriately Head: normocephalic, atraumatic Mouth: His membranes dry Eyes: LAWANDA, no icterus Cardio: RRR, no mumurs, rubs, or gallops Respiratory: CTAB, no wheezing, rhonchi, rales Abd: normal bowel sounds, no gaurding or rigidity Extremties: no pedal edema, pulses equal bilaterally, warm Skin: warm, dry, intact Neuro: No focal deficits noted, cranial nerves II through XII intact Psych: Patient's affect is normal Internal Med - H&P Results - Labs CBC & Chem 7: 09/21/18 14:25 09/21/18 14:25 Labs: Short CBC 09/21/18 Range/Units 14:25 WBC 6.4 (4.3-11.1) K/mcL Hgb 11.6 (11.5-15.4) g/dL Hct 33.1 L (35.3-44.9) % Plt Count 183 (140-400) K/mcL Neutrophils # 4.4 (1.6-8.9) K/mcL BMP 09/21/18 14:25 Sodium 129 L Potassium 5.4 H Chloride 95 L Carbon Dioxide 26 BUN 38 H Creatinine 1.84 H Glucose 584 H* Calcium 8.9 Cardiac Enzymes 09/21/18 Range/Units 14:25 Troponin I 0.03 (< 0.04) ng/mL Liver Function 09/21/18 Range/Units 14:25 Total Bilirubin 0.7 (0.3-1.0) mg/dL AST 21 (13-39) Units/L ALT 5 L (7-52) Units/L Alkaline Phosphatase 87 (34-104) Units/L Albumin 4.3 (3.5-5.7) g/dL - Impressions ITS Impressions Chest X-Ray 09/21/18 15:36 IMPRESSION: No acute process. D/ / Anabelle Harris MD / Anabelle Harris MD Interpreting Provider: Anabelle Harris MD - Assessment and Plan (1) DKA (diabetic ketoacidoses) Current Visit: Yes Status: Acute Assessment and plan: Has elevated blood sugars Patient has received 2 L bolus in the ED Patient will receive IV fluids on DKA protocol Monitor blood sugars closely with use of IV insulin Patient is at high risk for complications due to a reported history of diabetes that is uncontrolled and blood sugars that range anywhere from 38 to the upper 300s Just insulin regimen as necessary Accu-Cheks every hour, if a large decrease in her leukosis is noted quickly and we will go to every half hour Replaced potassium as necessary as per protocol Qualifiers: Diabetes mellitus type: type 2 Diabetes mellitus complication detail: without coma Qualified Code(s): E11.10 - Type 2 diabetes mellitus with ketoacidosis without coma (2) Acute kidney injury superimposed on chronic kidney disease Current Visit: Yes Status: Acute Assessment and plan: Patient has creatinine 1.84 Her baseline is to 1.3 and 1.5 This is likely due to dehydration and DKA Continue IV fluids Continue to monitor input and output T monitor creatinine (3) Hyperkalemia Current Visit: Yes Status: Acute Assessment and plan: Is 5.4 This is probably due to hyperosmolar hyperglycemic state Continue to monitor (4) CAD (coronary artery disease) Current Visit: Yes Status: Acute Assessment and plan: Note history of CAD We will resume her home medications Qualifiers: Coronary Disease-Associated Artery/Lesion type: [place] artery [place] vs. transplanted heart: [place] heart Associated angina: without angina Qualified Code(s): I25.10 - Atherosclerotic heart disease of [place] coronary artery without angina pectoris (5) DVT prophylaxis Current Visit: Yes Status: Acute Assessment and plan: Subcutaneous heparin - Time Spent With Patient Total time spent is greater than 50% in coordination of care (as documented) at patient's floor/unit and/or counseling patient: <Toro Gonzales - Last Filed: 09/21/18 23:03> Date of Encounter: 09/21/18 Time of Encounter: 17:50 Internal Medicine - H&P: HPI History of present illness: Ms. Coleman is a 67 year old female Past Med Surg Social Fam HX - Family History Mother Hx Family Cardiac Disorders: Yes (stroke x 2) Hx Family Respiratory Disorders: No Hx Family Cancer: Yes (Breast) Hx Family GI Disorders: No Hx Family Endocrine Disorder: No Hx Family Neuromuscular Disorders: No Hx Family Neurologic Disorders: No Hx Family HEENT Disorders: No Hx Family Autoimmune Disorders: No Brother Hx Family Cardiac Disorders: Yes (ID, CVA) Hx Family Respiratory Disorders: No Hx Family Cancer: No Hx Family GI Disorders: No Hx Family Endocrine Disorder: Yes (diabetes) Hx Family Neuromuscular Disorders: No Hx Family Neurologic Disorders: No Hx Family HEENT Disorders: No Hx Family Autoimmune Disorders: No Hx Family Medical Disorders: Yes (HTN) Father Living Status: Age at : 47 Cause of : brain aneurysm All Systems PM: A 10-system review of systems was performed and is negative for pertinent findings except as documented above in the HPI. - Constitutional Vitals: Temp Pulse Resp BP Pulse Ox 98.1 F 88 16 149/56 100 09/21/18 14:12 09/21/18 18:19 09/21/18 18:19 09/21/18 18:19 09/21/18 18:19 Internal Med - H&P Results - Labs CBC & Chem 7: 09/21/18 14:25 09/21/18 21:34 Labs: Short CBC 09/21/18 Range/Units 14:25 WBC 6.4 (4.3-11.1) K/mcL Hgb 11.6 (11.5-15.4) g/dL Hct 33.1 L (35.3-44.9) % Plt Count 183 (140-400) K/mcL Neutrophils # 4.4 (1.6-8.9) K/mcL BMP 09/21/18 09/21/18 09/21/18 14:25 18:36 21:34 Sodium 129 L 134 L 137 Potassium 5.4 H 3.9 D 3.9 Chloride 95 L 107 109 H Carbon Dioxide 26 24 23 BUN 38 H 29 H 27 H Creatinine 1.84 H 1.38 H 1.22 H Glucose 584 H* 301 H 173 H Calcium 8.9 8.5 L 8.3 L Cardiac Enzymes 09/21/18 Range/Units 14:25 Troponin I 0.03 (< 0.04) ng/mL Liver Function 09/21/18 Range/Units 14:25 Total Bilirubin 0.7 (0.3-1.0) mg/dL AST 21 (13-39) Units/L ALT 5 L (7-52) Units/L Alkaline Phosphatase 87 (34-104) Units/L Albumin 4.3 (3.5-5.7) g/dL Urine 09/21/18 Range/Units 17:55 Urine Color Yellow (Yellow) Urine Clarity Clear (Clear) Urine pH 6.0 (5.0-8.0) pH Units Ur Specific [place] 1.016 (1.010-1.025) Urine Protein Negative (Neg-Trace) mg/dL Urine Glucose (UA) >=1000 H (Normal) mg/dL - ABG Interpretation ABG results: 09/21/18 09/21/18 18:12 21:45 VBG pH 7.26 L 7.38 D VBG pCO2 50 36 L VBG pO2 95 H 195 H VBG HCO3 22 21 - Impressions ITS Impressions Chest X-Ray 09/21/18 15:36 IMPRESSION: No acute process. D/ / Anabelle Harris MD / Anabelle Harris MD Interpreting Provider: Anabelle Harris MD - Time Spent With Patient Total time spent is greater than 50% in coordination of care (as documented) at patient's floor/unit and/or counseling patient: - Attending Attestation I saw evaluated and examined this patient and my medical decision-making was reviewed with the Resident Physician, Velma Garces. I agree with the documented findings, review of systems, past medical, surgical, social and family histories, disposition and treatment plan as described except to any changes set forth below. We independently had [id number] contact with the patient. Patient with history of diabetes [id number], contrary artery disease, hypertension presented to the ER after her primary care provider advised her to come due to with her brittle diabetes. Patient has been struggling with elevated and low blood sugars intermittently over the past couple of weeks. She is to previously see an continuous dryout operator helper but has not been able to see one for several months. She takes Lantus in the morning and Humalog 3 times a day before meals. She reports that yesterday she had checked her blood sugar before going outside her home and it was noted to be 318. She then took 5 units of Humalog and went to [facility] and she checked her blood sugar again over there and was found to be in the 50s. She also had an episode of hypoglycemia with blood sugar of 30s a few days back and it took a while before her sugars came back up. She was advised to cut back on her Lantus insulin and has been slowly going up on it again as her sugars have remained high. This morning she took 41 units of Levemir and has taken to 36 units of Humalog 3 times but her glucometer Reading high and so she came to the ER. Patient feels thirsty and hungry. She denies any chest pain shortness of breath. No abdominal pain nausea or vomiting. She does have chronic back pain. No fevers or chills. No dysuria. No hematuria. She does report constipation. General: Patient is alert, moderate distress, oriented x 3 Head: atraumatic, normocephalic, ENT: Mucous membranes are dry Eye: normal appearance, PERRL, no scleral icterus, no conjunctival injection Neck: normal inspection, trachea midline, full ROM, no carotid bruits Chest: normal inspection, symmetric chest rise Respiratory: Good respiratory effort. Normal breath sounds. No wheezing or crackles. Cardiovascular: Regular rate and rhythm. s1 and s2 normal No clicks, rubs, gallops, or murmurs. No pedal edema Abdomen: Abdomen is soft, nontender. Bowel sounds are present Musculoskeletal: Spontaneously moving all extremities Skin: Poor skin turgor, warm, dry, intact. Neuro: Alert oriented x 3 normal cranial nerves, no focal deficits Psych: Patient's affect is normal Hyperosmolar hyperglycemic state: With elevated blood sugars. Will place patient on IV fluids and HHS protocol. Monitor blood sugars closely while patient is on IV insulin. High risk for complications. Given that patient reported a history of brittle diabetes, she will need close monitoring of her sugars and adjustment of her insulin regimen. Acute kidney injury on chronic kidney disease stage III: Patient has elevated creatinine above her baseline. Currently 1.84. Baseline appears to be between 1.3 and 1.5. Likely due to dehydration and HHS. We will give IV fluids. Monitor input and output. Monitor renal function. Hyperkalemia: Potassium of 5.4. Most likely due to hyperosmolar hyperglycemic state. We will manage accordingly. Coronary artery disease: Resume home medications. DVT prophylaxis with subcutaneous heparin.
[2018-09-21 18:13] LABS: Bilirubin,Urine Negative (Negative); Blood,Urine Negative (Negative); Clarity,Urine Clear (Clear); Color,Urine Yellow (Yellow); Glucose,Urine (UA) >=1000 mg/dL (Normal); Ketones,Urine Trace mg/dL (Negative); Leukocyte Esterase,Urine Negative (Negative); Nitrite,Urine Negative (Negative); Protein,Urine Negative (Neg-Trace); Specific Gravity,Urine 1.016 (1.010-1.025); Urobilinogen,Urine Normal (Normal)
[2018-09-21 18:14] LABS: VBG HCO3 22 mEq/L (21-27); VBG PCO2 50 mmHg (41-51); VBG PH 7.26 pH Units (7.32-7.42); VBG PO2 95 mmHg (25-50)
[2018-09-21 19:06] LABS: Calcium 8.5 mg/dL (8.6-10.3); Potassium 3.9 mEq/L (3.5-5.1)
[2018-09-21 21:47] LABS: VBG HCO3 21 mEq/L (21-27); VBG PCO2 36 mmHg (41-51); VBG PH 7.38 pH Units (7.32-7.42); VBG PO2 195 mmHg (25-50)
[2018-09-21] MEDS: *HR* Heparin 5,000 UNIT/ML VIAL SQ SCH (22:00)
[2018-09-21] MEDS: 0.9 % Sodium Chloride 1,000 ML IVC SCH (22:01)
[2018-09-21 22:02] LABS: Calcium 8.3 mg/dL (8.6-10.3); Potassium 3.9 mEq/L (3.5-5.1)
[2018-09-21] MEDS ORDERED: D5% in Water 1,000 ML IVC PRN (22:31)
[2018-09-21] MEDS ORDERED: Dextrose Gel 15 GM/37.5 ML TUBE PO PRN ×2 (22:31)
[2018-09-21] MEDS ORDERED: Insulin DETEMIR 100 UNIT/ML X5UNITS SQ SCH (22:45)
[2018-09-21] MEDS ORDERED: 0.9 % Sodium Chloride 1,000 ML IVC SCH (23:15)
[2018-09-22] MEDS: Insulin LISPRO 300 UNITS/3 ML VIAL SQ SCH ×4 (00:16→17:06)
[2018-09-22 01:44] LABS: Basophils % 0.8 %; Eosinophils # 0.2 K/mcL (0.0-0.6); Eosinophils % 2.9 %; Hematocrit 29.3 % (35.3-44.9); Immature Granulocytes % 0.4 % (0-4); Lymphocytes # 1.8 K/mcL (0.6-4.6); Lymphocytes % 35.2 %; Mean Corpuscular HGB Conc 34.1 g/dL (31.6-35.5); Mean Corpuscular Volume 90.7 fL (83.0-100.0); Mean Platelet Volume 11.2 fL (9.4-12.4); Monocytes # 0.4 K/mcL (0.0-1.3); Monocytes % 8.4 %; Neutrophils # 2.7 K/mcL (1.6-8.9); Platelet Count 160 K/mcL (140-400); Red Blood Count 3.23 M/mcL (3.82-4.97); Red Cell Distribution Width 12.3 % (11.5-14.5); Segmented Neutrophils % 52.3 %
[2018-09-22 01:52] LABS: Calcium 8.3 mg/dL (8.6-10.3); Potassium 4.1 mEq/L (3.5-5.1)
[2018-09-22 02:24] LABS: Estimated Average Glucose 229 mg/dl; Hemoglobin A1C 9.6 %
[2018-09-22] MEDS: *HR* Heparin 5,000 UNIT/ML VIAL SQ SCH ×2 (06:08→17:07)
[2018-09-22 06:33] LABS: Calcium 8.7 mg/dL (8.6-10.3); Potassium 4.5 mEq/L (3.5-5.1)
[2018-09-22] MEDS: Acetaminophen 325 MG TABLET PO PRN ×2 (10:54→17:07)
[2018-09-22 11:09] LABS: Calcium 8.9 mg/dL (8.6-10.3); Potassium 4.4 mEq/L (3.5-5.1)
--- NOTE | 2018-09-22 13:14 | Internal Med Progress Note ---
<Toro Gonzales - Last Filed: 09/22/18 13:52> Hospitalist Progress Note - Encounter Date of Encounter: 09/22/18 Time of Encounter: 10:30 - Exam Vitals: Temp Pulse Resp BP Pulse Ox 98.1 F 93 16 154/69 96 09/22/18 11:22 09/22/18 11:22 09/22/18 11:22 09/22/18 11:22 09/22/18 11:22 - Time Spent with Patient Total time spent is greater than 50% in coordination of care (as documented) at patient's floor/unit and/or counseling patient: Internal Medicine: Result - Labs CBC & Chem 7: 09/22/18 00:49 09/22/18 10:12 Labs: Short CBC 09/21/18 09/22/18 Range/Units 14:25 00:49 WBC 6.4 5.1 (4.3-11.1) K/mcL Hgb 11.6 10.0 L D (11.5-15.4) g/dL Hct 33.1 L 29.3 L (35.3-44.9) % Plt Count 183 160 (140-400) K/mcL Neutrophils # 4.4 2.7 (1.6-8.9) K/mcL BMP 09/21/18 09/21/18 09/21/18 14:25 18:36 21:34 Sodium 129 L 134 L 137 Potassium 5.4 H 3.9 D 3.9 Chloride 95 L 107 109 H Carbon Dioxide 26 24 23 BUN 38 H 29 H 27 H Creatinine 1.84 H 1.38 H 1.22 H Glucose 584 H* 301 H 173 H Calcium 8.9 8.5 L 8.3 L 09/22/18 09/22/18 09/22/18 00:49 05:47 10:12 Sodium 138 139 139 Potassium 4.1 4.5 4.4 Chloride 107 107 106 Carbon Dioxide 23 24 26 BUN 24 H 22 18 Creatinine 1.18 1.15 1.14 Glucose 272 H 215 H 160 H Calcium 8.3 L 8.7 8.9 Cardiac Enzymes 09/21/18 Range/Units 14:25 Troponin I 0.03 (< 0.04) ng/mL Liver Function 09/21/18 Range/Units 14:25 Total Bilirubin 0.7 (0.3-1.0) mg/dL AST 21 (13-39) Units/L ALT 5 L (7-52) Units/L Alkaline Phosphatase 87 (34-104) Units/L Albumin 4.3 (3.5-5.7) g/dL Urine 09/21/18 Range/Units 17:55 Urine Color Yellow (Yellow) Urine Clarity Clear (Clear) Urine pH 6.0 (5.0-8.0) pH Units Ur Specific [place] 1.016 (1.010-1.025) Urine Protein Negative (Neg-Trace) mg/dL Urine Glucose (UA) >=1000 H (Normal) mg/dL - Impressions Impressions Chest X-Ray 09/21/18 15:36 IMPRESSION: No acute process. D/ / Anabelle Harris MD / Anabelle Harris MD Interpreting Provider: Anabelle Harris MD Consult Discharge Plan - Plan Referrals: Dimitry Maldonado MD [Primary Care Provider] - - Attending Attestation I saw evaluated and examined this patient and my medical decision-making was reviewed with the Resident Physician, Velma Garces. I agree with the documented findings, review of systems, past medical, surgical, social and family histories, disposition and treatment plan as described except to any changes set forth below. We independently had [id number] contact with the patient. Patient's hyperglycemic state was corrected last night. She has been on subcutaneous insulin since then. She had an episode of hypoglycemia this morning with blood glucose of 57. She received orange juice with improvement in her blood sugars. She denies any fevers or chills at this time. No nausea or vomiting. No dizziness or lightheadedness. General: Patient is alert, moderate distress, oriented x 3 Head: atraumatic, normocephalic, ENT: Mucous membranes are moist Respiratory: Good respiratory effort. Normal breath sounds. No wheezing or crackles. Cardiovascular: Regular rate and rhythm. s1 and s2 normal No clicks, rubs, gallops, or murmurs. No pedal edema Abdomen: Abdomen is soft, nontender. Bowel sounds are present Musculoskeletal: Spontaneously moving all extremities Skin: Poor skin turgor, warm, dry, intact. Neuro: Alert oriented x 3 normal cranial nerves, no focal deficits Psych: Patient's affect is normal Hyperosmolar hyperglycemic state: Now resolved. Brittle insulin-dependent diabetes mellitus: Patient having episodes of hypoglycemia alternating with hypoglycemia. We will decrease Levemir dosage. Continue low dose short-acting insulin per sliding scale. Monitor blood sugars before meals at bedtime. She will need endocrinology follow-up to better manage her diabetic regimen and may even benefit from insulin pump. Acute kidney injury on chronic kidney disease stage III: Patient has elevated creatinine above her baseline. Currently 1.84. Baseline appears to be between 1.3 and 1.5. Likely due to dehydration and HHS. We will give IV fluids. Kesha tor input and output. Monitor renal function. Hyperkalemia: Resolved Coronary artery disease: Continue aspirin, Coreg and simvastatin DVT prophylaxis with subcutaneous heparin. <Velma Garces E - Last Filed: 09/22/18 15:47> Hospitalist Progress Note - Encounter Date of Encounter: 09/22/18 - Subjective Interval History: Ms. Callahan is a 67-year-old female who presented to the ED her blood pressure sugars were in the high range on her glucometer. She has been having blood glucoses in the upper 500s as well as lows in the 30s for the past 2 weeks. It is taken her long time to either bring up her glucose or bring it down. She states that she is unsure why this is started happening. She stated she just had not been feeling well, felt hot and had a headache. Patient used 36 units short-acting 3 times a day. Her only other complaint was constipation Patient was seen and examined at bedside today and she states she is feeling much better. She states she had one low blood sugar of 58 right before she ate breakfast this morning. She states that she just wants to figure out what is going on with her. She denied any chest pain, shortness of breath, nausea, vomiting, diarrhea. She also denied any lightheadedness/dizziness, shakiness, blurred vision. - Exam Vitals: Temp Pulse Resp BP Pulse Ox 98.1 F 93 16 154/69 96 09/22/18 11:22 09/22/18 11:22 09/22/18 11:22 09/22/18 11:22 05/03/19 11:22 Exam: General: AAO 3, moderate distress, and is questions appropriately Head: normocephalic, atraumatic Mouth: His membranes moist Eyes: LAWANDA, no icterus Cardio: RRR, no mumurs, rubs, or gallops Respiratory: CTAB, no wheezing, rhonchi, rales Abd: normal bowel sounds, no gaurding or rigidity Extremties: no pedal edema, pulses equal bilaterally, warm Skin: warm, dry, intact Neuro: No focal deficits noted, cranial nerves II through XII intact Psych: Patient's affect is normal - Assessment and Plan (1) DKA (diabetic ketoacidoses) Current Visit: Yes Status: Acute Assessment and Plan: She was given bolus of fluids IV insulin Patient was discontinued IV insulin last night. Patient's DKA has resolved Anion gap is closed Patient glucose remains elevated (2) Acute kidney injury superimposed on chronic kidney disease Current Visit: Yes Status: Acute Assessment and Plan: Patent patient's BUN normalized 18 Creatinine decreased to 1.14 from 1.22 GFR has increased 47 from 44 This was likely due to dehydration Patient was given bolus of fluids in the ED (3) Hyperkalemia Current Visit: Yes Status: Acute Assessment and Plan: On admission patient's potassium 5.4 Probably due to hyperosmolar hyperglycemic state This resulted 3.9 later that evening 4.4 today Continue to monitor (4) CAD (coronary artery disease) Current Visit: Yes Status: Acute Assessment and Plan: Patient's home medications have been resumed Known history of CAD (5) DVT prophylaxis Current Visit: Yes Status: Acute Assessment and Plan: Subcutaneous heparin (6) Type 2 diabetes mellitus Current Visit: Yes Status: Acute Assessment and Plan: Patient presented with DKA She has been insulin dependent diabetic for years She has been having trouble keeping her glucose within Limits Her dose has been ranging anywhere from 38 to the upper 600s for the last week and half. Patient's Levemir dosage was decreased We will continue low-dose short acting insulin per sliding scale dosage Monitor blood sugars before meals and at bedtime Endocrinology follow-up for better management of her diabetes - Time Spent with Patient Total time spent is greater than 50% in coordination of care (as documented) at patient's floor/unit and/or counseling patient: Internal Medicine: Result - Labs CBC & Chem 7: 09/22/18 00:49 09/22/18 10:12 Labs: Short CBC 09/21/18 09/22/18 Range/Units 14:25 00:49 WBC 6.4 5.1 (4.3-11.1) K/mcL Hgb 11.6 10.0 L D (11.5-15.4) g/dL Hct 33.1 L 29.3 L (35.3-44.9) % Plt Count 183 160 (140-400) K/mcL Neutrophils # 4.4 2.7 (1.6-8.9) K/mcL BMP 09/21/18 09/21/18 09/21/18 14:25 18:36 21:34 Sodium 129 L 134 L 137 Potassium 5.4 H 3.9 D 3.9 Chloride 95 L 107 109 H Carbon Dioxide 26 24 23 BUN 38 H 29 H 27 H Creatinine 1.84 H 1.38 H 1.22 H Glucose 584 H* 301 H 173 H Calcium 8.9 8.5 L 8.3 L 09/22/18 09/22/18 09/22/18 00:49 05:47 10:12 Sodium 138 139 139 Potassium 4.1 4.5 4.4 Chloride 107 107 106 Carbon Dioxide 23 24 26 BUN 24 H 22 18 Creatinine 1.18 1.15 1.14 Glucose 272 H 215 H 160 H Calcium 8.3 L 8.7 8.9 Cardiac Enzymes 09/21/18 Range/Units 14:25 Troponin I 0.03 (< 0.04) ng/mL Liver Function 09/21/18 Range/Units 14:25 Total Bilirubin 0.7 (0.3-1.0) mg/dL AST 21 (13-39) Units/L ALT 5 L (7-52) Units/L Alkaline Phosphatase 87 (34-104) Units/L Albumin 4.3 (3.5-5.7) g/dL Urine 09/21/18 Range/Units 17:55 Urine Color Yellow (Yellow) Urine Clarity Clear (Clear) Urine pH 6.0 (5.0-8.0) pH Units Ur Specific [place] 1.016 (1.010-1.025) Urine Protein Negative (Neg-Trace) mg/dL Urine Glucose (UA) >=1000 H (Normal) mg/dL - Impressions Impressions Chest X-Ray 09/21/18 15:36 IMPRESSION: No acute process. D/ / Anabelle Harris MD / Anabelle Harris MD Interpreting Provider: Anabelle Harris MD <Velma Garces E - Last Filed: 09/22/18 15:47> (1) DKA (diabetic ketoacidoses) Qualifiers: Diabetes mellitus type: type 2 Diabetes mellitus complication detail: without coma Qualified Code(s): E11.10 - Type 2 diabetes mellitus with ketoacidosis without coma (4) CAD (coronary artery disease) Qualifiers: Coronary Disease-Associated Artery/Lesion type: [place] artery [place] vs. transplanted heart: [place] heart Associated angina: without angina Qualified Code(s): I25.10 - Atherosclerotic heart disease of [place] coronary artery without angina pectoris (6) Type 2 diabetes mellitus Qualifiers: Diabetes mellitus long term care pharmacist insulin use: with long term care pharmacist use Diabetes mellitus complication status: without complication Qualified Code(s): E11.9 - Type 2 diabetes mellitus without complications; Z79.4 - MCC (current) use of insulin
--- NOTE | 2018-09-22 16:01 | Electrocardiograph Report ---
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
[2018-09-22 16:43] LABS: Calcium 8.7 mg/dL (8.6-10.3); Potassium 4.7 mEq/L (3.5-5.1)
[2018-09-22 18:55] LABS: Calcium 8.7 mg/dL (8.6-10.3); Potassium 4.5 mEq/L (3.5-5.1)
[2018-09-22] MEDS ORDERED: Insulin LISPRO 300 UNITS/3 ML VIAL SQ SCH (21:00)
[2018-09-22] MEDS ORDERED: Insulin DETEMIR 100 UNIT/ML X5UNITS SQ SCH (21:00)
[2018-09-22 22:15] LABS: Calcium 8.6 mg/dL (8.6-10.3); Potassium 4.4 mEq/L (3.5-5.1)
[2018-09-23] MEDS: *HR* Heparin 5,000 UNIT/ML VIAL SQ SCH (05:27)
[2018-09-23 07:00] LABS: Calcium 8.9 mg/dL (8.6-10.3); Potassium 4.5 mEq/L (3.5-5.1)
[2018-09-23] MEDS: 0.9 % Sodium Chloride 1,000 ML IVC SCH ×2 (07:45→07:46)
[2018-09-23] MEDS ORDERED: Aspirin 81 MG TAB.CHEW PO SCH (09:00)
[2018-09-23] MEDS: Insulin LISPRO 300 UNITS/3 ML VIAL SQ SCH ×2 (09:23→11:47)
--- NOTE | 2018-09-23 10:55 | Internal Med Progress Note ---
Hospitalist Progress Note - Encounter Date of Encounter: 09/23/18 - Exam Vitals: Temp Pulse Resp BP Pulse Ox 98.2 F 79 16 157/76 98 09/23/18 06:12 09/23/18 06:12 09/23/18 06:12 09/23/18 06:12 09/23/18 09:36 - Time Spent with Patient Total time spent is greater than 50% in coordination of care (as documented) at patient's floor/unit and/or counseling patient: Internal Medicine: Result - Labs CBC & Chem 7: 09/22/18 00:49 09/23/18 06:20 Labs: BMP 09/22/18 09/22/18 09/22/18 10:12 15:34 18:15 Sodium 139 136 133 L Potassium 4.4 4.7 4.5 Chloride 106 103 106 Carbon Dioxide 26 26 23 BUN 18 19 20 Creatinine 1.14 1.29 H 1.21 H Glucose 160 H 385 H 342 H Calcium 8.9 8.7 8.7 09/22/18 09/23/18 21:44 06:20 Sodium 136 135 L Potassium 4.4 4.5 Chloride 104 102 Carbon Dioxide 24 26 BUN 22 19 Creatinine 1.41 H 1.11 Glucose 260 H 290 H Calcium 8.6 8.9 Consult Discharge Plan - Plan Referrals: Dimitry Maldonado MD [Primary Care Provider] -
--- NOTE | 2018-09-23 11:01 | Discharge Summary ---
- NOTES TO OUTPATIENT PROVIDER Notes to Outpatient Provider: Patient known to have a history of brittle diabetes having episodes of hyperglycemia and hypoglycemia at home was hospitalized here with hyperosmolar hyperglycemic state requiring intravenous insulin and IV fluids. Her blood sugars corrected quickly and she is being monitored since then while receiving subcutaneous insulin. She did have an episode of hypoglycemia with blood sugar of 57 yesterday morning. Her insulin regimen has been adjusted accordingly and since then she has not had further episodes of hypoglycemia. Her blood sugars are currently in the 200s and she is doing well. She will be discharged home with changes to her insulin regimen to allow for slightly higher than normal blood sugars while avoiding episodes of hypoglycemia. She will need follow-up with endocrinology which can be arranged as outpatient to manage her diabetes better. Date of Encounter: 09/23/18 Time of Encounter: 10:15 - Discharge Diagnosis (1) Type 2 diabetes mellitus with hyperosmolar nonketotic hyperglycemia Priority: Primary Status: Acute Hospital course: Ms. Coleman is a 67 year old female Patient known to have a history of brittle diabetes , essential hypertension who having episodes of hyperglycemia and hypoglycemia at home was hospitalized here with hyperosmolar hyperglycemic state requiring intravenous insulin and IV fluids. Her blood sugars corrected quickly and she is being monitored since then while receiving subcutaneous insulin. She did have an episode of hypoglycemia with blood sugar of 57 yesterday morning. Her insulin regimen has been adjusted accordingly and since then she has not had further episodes of hypoglycemia. Her blood sugars are currently in the 200s and she is doing well. She will be discharged home with changes to her insulin regimen to allow for slightly higher than normal blood sugars while avoiding episodes of hypoglycemia. She will need follow-up with endocrinology which can be arranged as outpatient to manage her diabetes better. Discharge discussed with: patient - Time Spent with Patient Total time spent providing and/or coordinating discharge services: Time spent: Less than 30 minutes (25 min) - Discharge Medications Prescriptions: New Dextrose Gel [Gluctose] 30 gm PO ONCE PRN #20 tube PRN Reason: Hypoglycemia Continued Simvastatin [Zocor] 40 mg PO HS Citalopram Hydrobromide [Citalopram HBr] 40 mg PO DAILY Carvedilol 3.125 mg PO BID Lisinopril [Zestril] 10 mg PO DAILY Pantoprazole Sodium [Protonix] 40 mg PO DAILY Mv-Mn/FA/Vit K/Lycop/Lut/Coq10 [Daily Multivitamin Capsule] 1 tab PO DAILY Cholecalciferol (Vitamin D3) [Vitamin D3] 1,000 unit PO DAILY Polyethylene Glycol 3350 [MiraLax bowel prep] 17 gm PO DAILY Iron Polysaccharide Complex [Ferrex 150] 150 mg PO DAILY Aspirin [Adult Aspirin Regimen] 81 mg PO DAILY Changed Insulin LISPRO [HumaLOG] 10 unit SQ TIDWM PRN #1 vial PRN Reason: PER SLIDING SCALE Insulin Glargine,Hum.rec.anlog [Lantus Solostar] 10 unit SQ DAILY #1 insuln.pen Home Medications: Carvedilol 3.125 mg PO BID 10/09/16 [History] Citalopram Hydrobromide [Citalopram HBr] 40 mg PO DAILY 10/09/16 [History] Lisinopril [Zestril] 10 mg PO DAILY 10/09/16 [History] Pantoprazole Sodium [Protonix] 40 mg PO DAILY 10/09/16 [History] Simvastatin [Zocor] 40 mg PO HS 10/09/16 [History] Mv-Mn/FA/Vit K/Lycop/Lut/Coq10 [Daily Multivitamin Capsule] 1 tab PO DAILY 12/31/16 [History] Cholecalciferol (Vitamin D3) [Vitamin D3] 1,000 unit PO DAILY 12/27/17 [History] Iron Polysaccharide Complex [Ferrex 150] 150 mg PO DAILY 12/27/17 [History] Polyethylene Glycol 3350 [MiraLax bowel prep] 17 gm PO DAILY 12/27/17 [History] Aspirin [Adult Aspirin Regimen] 81 mg PO DAILY 09/22/18 [History] Dextrose Gel [Gluctose] 30 gm PO ONCE PRN #20 tube 09/23/18 [Rx] Insulin Glargine,Hum.rec.anlog [Lantus Solostar] 10 unit SQ DAILY #1 insuln.pen 09/23/18 [Rx] Insulin LISPRO [HumaLOG] 10 unit SQ TIDWM PRN #1 vial 09/23/18 [Rx] Allergies/Adverse Reactions: Allergy/AdvReac Type Severity Reaction Status Date / Time propoxyphene Allergy Hives Verified 09/22/18 10:50 [From Jaime] Date of admission: 09/21/18 17:57 Primary care physician: Dimitry Maldonado MD Consults: 09/21/18 17:59 Consult for Pharmacy Education [CONS] Routine Reason for Consult: DKA Call Completed: No Consult to Endocrinology [CONS] Routine Consulting Provider: [facility] Reason for Consult: DKA Call Completed: No Discharging clinician: Toro Gonzales Anticipated date of discharge: 09/23/18 - Constitutional Vitals: Temp Pulse Resp BP Pulse Ox 98.2 F 79 16 157/76 98 09/23/18 06:12 09/23/18 06:12 09/23/18 06:12 09/23/18 06:12 09/23/18 09:36 General appearance: Present: cooperative, A&O X 3, pleasant, no acute distress, obese, answers questions appropriately Exam: . - Respiratory Respiratory exam: Present: CTAB. Absent: accessory muscle use, rales, rhonchi, wheezes - Cardiovascular Cardiovascular exam: Present: RRR, +S1, +S2. Absent: diastolic murmur, gallop, rubs, systolic murmur - Patient Status Disposition: Home, Self-Care Condition: Good Functional capacity at discharge: independent ambulation Overall status at discharge: patient is progressing back to baseline - Discharge Instructions Instructions: Diabetes Mellitus Type 2 in Adults (DC) Follow Up With: Dimitry Maldonado MD [Primary Care Provider] - (in 1-2 weeks) Additional Instructions: Please return to the ER if you experience any more episodes of hypoglycemia. Patient will need follow-up with endocrinology as outpatient to better manage her brittle diabetes - Diet and Activity Activity: increase activity as tolerated Diet: diabetic diet
[2018-09-23] MEDS ORDERED: Insulin DETEMIR 100 UNIT/ML X5UNITS SQ ONE (11:37)
[2018-09-23] MEDS ORDERED: Insulin LISPRO 300 UNITS/3 ML VIAL SQ SCH ×3 (11:38→12:00)
[2018-09-23 15:01] VITALS: BP 125/77
== END 2018-09-23 15:27 | disposition home or self-care (01) ==
LOC: EMEROOARM 14:06 → 3ANU 14:06 → SUATTDRO 17:57 → 3ANU 19:11
PROVIDERS: ADMIT Internal Medicine; ATTEND Internal Medicine

== ENCOUNTER 2019-09-09 13:31 | Observation (INO) ==
[2019-09-09] MEDS ORDERED: 0.9 % Sodium Chloride 1,000 ML IVC ONE ×2 (13:40→18:19)
[2019-09-09 14:21] LABS: Mean Corpuscular HGB Conc 35.1 g/dL (31.6-35.5); Mean Corpuscular Hemoglobin 30.2 pg (28.0-33.3); Mean Corpuscular Volume 85.8 fL (83.0-100.0); Mean Platelet Volume 11.3 fL (9.4-12.4); Platelet Count 184 K/mcL (140-400); Red Blood Count 4.31 M/mcL (3.82-4.97); Red Cell Distribution Width 11.7 % (11.5-14.5); White Blood Count 6.4 K/mcL (4.3-11.1)
[2019-09-09 14:21] LABS: VBG HCO3 25 mEq/L (21-27); VBG PCO2 39 mmHg (41-51); VBG PH 7.41 pH Units (7.32-7.42); VBG PO2 157 mmHg (25-50)
[2019-09-09 14:37] LABS: BUN/Creatinine Ratio 15 (6-26); Blood Urea Nitrogen 19 mg/dL (8-23); Calcium 9.4 mg/dL (8.6-10.3); Carbon Dioxide 22 mEq/L (23-29); Chloride 92 mEq/L (98-107); Glucose 617 mg/dL (70-105); Osmolality,Calculated 295 (280-300); Potassium 4.4 mEq/L (3.5-5.1); Sodium 127 mEq/L (136-145); Troponin I < 0.03 ng/mL (< 0.04); eGFR For African Americans 49 (> 60); eGFR For Non-African Americans 40 (> 60)
[2019-09-09] MEDS ORDERED: Insulin Human Regular 100 UNIT in 0.9 % Sodium Chloride 100 ML IVC SCH (15:45)
[2019-09-09] MEDS ORDERED: Potassium Chloride Elixir 20 MEQ/15 ML UDC PO ONE (15:46)
[2019-09-09] MEDS ORDERED: Ondansetron 4 MG/2 ML VIAL IVP PRN (15:51)
[2019-09-09] MEDS ORDERED: D5% in 0.45% NACL w KCl 20 MEQ/1,000 ML MLS IVC PRN (15:55)
[2019-09-09] MEDS ORDERED: *HR* Dextrose 50 % in Water (Syg) 50 ML SYRINGE IVP PRN (15:55)
[2019-09-09] MEDS: 0.45 % Sodium Chloride w/KCl 20 MEQ/1,000 ML MLS IVC SCH (17:55)
[2019-09-09] MEDS: carvediloL 6.25 MG TABLET PO SCH (18:17)
[2019-09-09 19:46] LABS: BUN/Creatinine Ratio 16 (6-26); Blood Urea Nitrogen 17 mg/dL (8-23); Calcium 9.2 mg/dL (8.6-10.3); Carbon Dioxide 22 mEq/L (23-29); Chloride 105 mEq/L (98-107); Glucose 62 mg/dL (70-105); Osmolality,Calculated 282 (280-300); Sodium 136 mEq/L (136-145); eGFR For African Americans > 60 (> 60); eGFR For Non-African Americans 50 (> 60)
[2019-09-09] MEDS ORDERED: Insulin DETEMIR 100 UNIT/ML X5UNITS SQ ONE (21:48)
[2019-09-10] MEDS: Insulin LISPRO 300 UNITS/3 ML VIAL SQ SCH ×5 (01:35→22:16)
[2019-09-10 03:02] LABS: Bilirubin,Urine Negative (Negative); Blood,Urine Negative (Negative); Clarity,Urine Clear (Clear); Color,Urine Yellow (Yellow); Glucose,Urine (UA) >=1000 mg/dL (Normal); Ketones,Urine Negative (Negative); Leukocyte Esterase,Urine Negative (Negative); Nitrite,Urine Negative (Negative); Protein,Urine Negative (Neg-Trace); Specific Gravity,Urine 1.013 (1.010-1.025); Urobilinogen,Urine Normal (Normal)
[2019-09-10 05:57] LABS: Hematocrit 35.8 % (35.3-44.9); Hemoglobin 12.5 g/dL (11.5-15.4); Mean Corpuscular HGB Conc 34.9 g/dL (31.6-35.5); Mean Corpuscular Hemoglobin 30.6 pg (28.0-33.3); Mean Corpuscular Volume 87.5 fL (83.0-100.0); Mean Platelet Volume 10.8 fL (9.4-12.4); Platelet Count 202 K/mcL (140-400); Red Blood Count 4.09 M/mcL (3.82-4.97); Red Cell Distribution Width 12.1 % (11.5-14.5); White Blood Count 7.5 K/mcL (4.3-11.1)
[2019-09-10 06:20] LABS: Magnesium 2.1 mg/dL (1.6-2.6); Phosphorous 2.8 mg/dL (2.7-4.5); Potassium 4.4 mEq/L (3.5-5.1); Troponin I 0.03 ng/mL (< 0.04)
[2019-09-10] MEDS: Acetaminophen 325 MG TABLET PO PRN ×2 (08:17→19:22)
[2019-09-10] MEDS: carvediloL 6.25 MG TABLET PO SCH ×2 (08:18→16:39)
[2019-09-10] MEDS: Aspirin Enteric Coated 81 MG Tablet PO SCH (08:18)
[2019-09-10] MEDS: lisinopriL 10 MG TABLET PO SCH (08:19)
[2019-09-10 08:24] LABS: Estimated Average Glucose 240 mg/dl
[2019-09-10] MEDS ORDERED: Insulin DETEMIR 100 UNIT/ML X5UNITS SQ SCH (09:00)
[2019-09-10] MEDS: 0.45 % Sodium Chloride w/KCl 20 MEQ/1,000 ML MLS IVC SCH (13:03)
[2019-09-11 07:01] VITALS: BP 150/81
[2019-09-11] MEDS: Insulin LISPRO 300 UNITS/3 ML VIAL SQ SCH (08:48)
[2019-09-11] MEDS: carvediloL 6.25 MG TABLET PO SCH (08:48)
[2019-09-11] MEDS: lisinopriL 10 MG TABLET PO SCH (08:49)
[2019-09-11] MEDS: Aspirin Enteric Coated 81 MG Tablet PO SCH (08:49)
[2019-09-11] MEDS ORDERED: Insulin DETEMIR 100 UNIT/ML X5UNITS SQ SCH ×2 (09:00)
== END 2019-09-11 12:04 | disposition home or self-care (01) ==
LOC: 3NENU 13:31 → EMEROOARM 13:31 → SUATTDRO 16:10 → 3NENU 17:41 → 3BNU 09-10 11:23
PROVIDERS: ADMIT Internal Medicine; ATTEND Internal Medicine

== ENCOUNTER 2020-02-24 16:04 | Observation (INO) ==
[2020-02-24 16:39] LABS: Basophils # 0.1 K/mcL (0.0-0.2); Basophils % 0.9 %; Eosinophils # 0.1 K/mcL (0.0-0.6); Eosinophils % 1.4 %; Hematocrit 34.6 % (35.3-44.9); Immature Granulocytes % 0.2 % (0-4); Lymphocytes # 1.4 K/mcL (0.6-4.6); Lymphocytes % 25.7 %; Mean Corpuscular HGB Conc 34.7 g/dL (31.6-35.5); Mean Corpuscular Hemoglobin 31.1 pg (28.0-33.3); Mean Corpuscular Volume 89.6 fL (83.0-100.0); Mean Platelet Volume 11.4 fL (9.4-12.4); Monocytes # 0.4 K/mcL (0.0-1.3); Monocytes % 6.9 %; Neutrophils # 3.6 K/mcL (1.6-8.9); Platelet Count 186 K/mcL (140-400); Red Blood Count 3.86 M/mcL (3.82-4.97); Red Cell Distribution Width 11.6 % (11.5-14.5); Segmented Neutrophils % 64.9 %; White Blood Count 5.5 K/mcL (4.3-11.1)
[2020-02-24 17:02] LABS: VBG HCO3 27 mEq/L (21-27); VBG PCO2 48 mmHg (41-51); VBG PH 7.36 pH Units (7.32-7.42); VBG PO2 90 mmHg (25-50)
[2020-02-24 17:20] LABS: BUN/Creatinine Ratio 16 (6-26); Blood Urea Nitrogen 24 mg/dL (8-23); Calcium 9.4 mg/dL (8.6-10.3); Carbon Dioxide 23 mEq/L (23-29); Chloride 97 mEq/L (98-107); Glucose 608 mg/dL (70-105); Magnesium 1.9 mg/dL (1.6-2.6); Osmolality,Calculated 304 (280-300); Potassium 4.9 mEq/L (3.5-5.1); Sodium 131 mEq/L (136-145); Troponin I < 0.03 ng/mL (< 0.04); eGFR For African Americans 42 (> 60); eGFR For Non-African Americans 34 (> 60)
[2020-02-24] MEDS: 0.9 % Sodium Chloride 1,000 ML IVC SCH ×2 (17:45→18:46)
[2020-02-24 18:59] LABS: Bilirubin,Urine Negative (Negative); Blood,Urine Negative (Negative); Clarity,Urine Clear (Clear); Color,Urine Colorless (Yellow); Glucose,Urine (UA) >=1000 mg/dL (Normal); Ketones,Urine Trace mg/dL (Negative); Leukocyte Esterase,Urine Negative (Negative); Nitrite,Urine Negative (Negative); Protein,Urine Negative (Neg-Trace); RBC,Urine 0-3 per hpf (0-3); Specific Gravity,Urine 1.026 (1.010-1.025); Squamous Epithelial Cell,Urine Few per hpf (None-Few); Urobilinogen,Urine Normal (Normal); WBC,Urine 0-3 per hpf (0-3)
[2020-02-24] MEDS ORDERED: Insulin Human Regular 100 UNIT in 0.9 % Sodium Chloride 100 ML IVC SCH ×2 (20:00→21:30)
[2020-02-24] MEDS ORDERED: Ondansetron 4 MG/2 ML VIAL IVP PRN (21:28)
[2020-02-24] MEDS ORDERED: Naloxone 0.4 MG/ML INJ IVP PRN (21:28)
[2020-02-24] MEDS ORDERED: 0.45 % Sodium Chloride w/KCl 20 MEQ/1,000 ML MLS IVC SCH (21:30)
[2020-02-24 22:24] LABS: Calcium 8.5 mg/dL (8.6-10.3); Potassium 4.1 mEq/L (3.5-5.1)
[2020-02-25] MEDS ORDERED: D5% in 0.45% NACL w KCl 20 MEQ/1,000 ML MLS IVC PRN (01:04)
[2020-02-25] MEDS ORDERED: Insulin DETEMIR 100 UNIT/ML X5UNITS SQ ONE (01:13)
[2020-02-25] MEDS ORDERED: D5% in Water 1,000 ML IVC PRN (01:13)
[2020-02-25] MEDS ORDERED: Dextrose Gel 15 GM/37.5 ML TUBE PO PRN ×2 (01:13)
[2020-02-25] MEDS ORDERED: *HR* Dextrose 50 % in Water (Vial) 50 ML VIAL IVP PRN (01:13)
[2020-02-25 02:43] LABS: Basophils # 0.1 K/mcL (0.0-0.2); Basophils % 0.9 %; Eosinophils # 0.1 K/mcL (0.0-0.6); Eosinophils % 1.9 %; Hematocrit 30.4 % (35.3-44.9); Hemoglobin 10.7 g/dL (11.5-15.4); Immature Granulocytes % 0.4 % (0-4); Lymphocytes # 2.2 K/mcL (0.6-4.6); Lymphocytes % 38.8 %; Mean Corpuscular HGB Conc 35.2 g/dL (31.6-35.5); Mean Corpuscular Hemoglobin 31.5 pg (28.0-33.3); Mean Corpuscular Volume 89.4 fL (83.0-100.0); Mean Platelet Volume 11.2 fL (9.4-12.4); Monocytes # 0.5 K/mcL (0.0-1.3); Monocytes % 8.6 %; Neutrophils # 2.8 K/mcL (1.6-8.9); Platelet Count 167 K/mcL (140-400); Red Cell Distribution Width 11.9 % (11.5-14.5); Segmented Neutrophils % 49.4 %; White Blood Count 5.7 K/mcL (4.3-11.1)
[2020-02-25 03:06] LABS: Calcium 8.6 mg/dL (8.6-10.3); Chol/HDL Ratio 2.5 (0-4.9); Magnesium 1.8 mg/dL (1.6-2.6); Potassium 3.7 mEq/L (3.5-5.1)
[2020-02-25] MEDS: Insulin LISPRO 300 UNITS/3 ML VIAL SQ SCH ×3 (05:37→18:38)
[2020-02-25] MEDS: *HR* Heparin 5,000 UNIT/ML VIAL SQ SCH ×2 (05:38→18:39)
[2020-02-25 05:47] LABS: BUN/Creatinine Ratio 12 (6-26); Blood Urea Nitrogen 16 mg/dL (8-23); C-Reactive Protein < 5 mg/L (Less than 10); Calcium 8.2 mg/dL (8.6-10.3); Carbon Dioxide 24 mEq/L (23-29); Chloride 108 mEq/L (98-107); Glucose 278 mg/dL (70-105); Osmolality,Calculated 299 (280-300); Potassium 4.3 mEq/L (3.5-5.1); Sodium 139 mEq/L (136-145); eGFR For African Americans 49 (> 60); eGFR For Non-African Americans 41 (> 60)
[2020-02-25] MEDS: Iron Polysaccharide Complex 150 MG CAPSULE PO SCH (08:40)
[2020-02-25] MEDS: Multivit/Ca/Min/Fe/FA 1 TAB TABLET PO SCH (08:40)
[2020-02-25] MEDS: Cholecalciferol (D-3) 1,000 UNIT (25MCG) TABLET PO SCH (08:41)
[2020-02-25] MEDS ORDERED: Acetaminophen 325 MG TABLET PO PRN (08:49)
[2020-02-25 12:35] LABS: Estimated Average Glucose 223 mg/dl
[2020-02-25] MEDS: carvediloL 6.25 MG TABLET PO SCH (19:50)
[2020-02-25] MEDS ORDERED: Insulin DETEMIR 100 UNIT/ML X5UNITS SQ SCH (21:00)
[2020-02-26] MEDS: Insulin LISPRO 300 UNITS/3 ML VIAL SQ SCH ×2 (02:28→06:13)
[2020-02-26] MEDS: *HR* Heparin 5,000 UNIT/ML VIAL SQ SCH (06:13)
[2020-02-26] MEDS: Cholecalciferol (D-3) 1,000 UNIT (25MCG) TABLET PO SCH (08:13)
[2020-02-26] MEDS: Iron Polysaccharide Complex 150 MG CAPSULE PO SCH (08:13)
[2020-02-26] MEDS: Multivit/Ca/Min/Fe/FA 1 TAB TABLET PO SCH (08:13)
[2020-02-26] MEDS: carvediloL 6.25 MG TABLET PO SCH (08:13)
[2020-02-26] MEDS ORDERED: lisinopriL 10 MG TABLET PO SCH (09:00)
[2020-02-26 10:34] VITALS: BP 134/79
[2020-02-26] MEDS ORDERED: FLU Vac QV 20-21 (6Month+)/PF 0.5 ML SYRINGE IM ONE (10:45)
== END 2020-02-26 12:32 | disposition home or self-care (01) ==
LOC: EMEROOARM 16:04 → 2NNU 16:04 → 3ANU 02-25 21:02
PROVIDERS: ADMIT Family Medicine; ATTEND Family Medicine